=== PATIENT | female | born 1940 | race Caucasian/White ===

== ENCOUNTER 2018-10-09 05:30 | Day surgery (SDC) | payer MEDICARE ==
[2018-10-09] VITALS (8 sets, daily range): BP systolic 105–146; BP diastolic 44–66
[~2018-10-09] VITALS: Ht 160 cm; Wt 90.7 kg
[~2018-10-09 05:30] MED LIST: APIX5TAB PO; ASPI-1005 PO; CALC-1116 PO; CETI10TA57 PO; FISH1CAP27 PO; FLUO20CA30 PO; LISI10TA7 PO; MULT-1203 PO; PRAV20TA4 PO
[2018-10-09] MEDS ORDERED: SODIUM CHLORIDE 0.9% 1000ML 1,000 ML IV ONE (05:43)
[2018-10-09] MEDS ORDERED: PROPOFOL 10 MG/ML 20ML VIAL IV ONE (06:35)
[2018-10-09] MEDS ORDERED: LIDOCAINE HCL-MPF 2% 5ML VIAL ONE (06:37)
== END 2018-10-09 07:45 | disposition home or self-care (01) ==
LOC: DAH 05:30 → ENDO 05:30
PROVIDERS: ATTEND Internal Medicine
DX: D12.3 Benign neoplasm of transverse colon (principal); D12.2 Benign neoplasm of ascending colon; K57.30 Diverticulosis of large intestine without perforation or abscess without bleeding; K64.8 Other hemorrhoids; I48.91 Unspecified atrial fibrillation; I10 Essential (primary) hypertension; E78.5 Hyperlipidemia, unspecified; I25.10 Atherosclerotic heart disease of native coronary artery without angina pectoris; I25.2 Old myocardial infarction; F32.9 Major depressive disorder, single episode, unspecified; Z88.8 Allergy status to other drugs, medicaments and biological substances; Z88.2 Allergy status to sulfonamides; Z88.1 Allergy status to other antibiotic agents; Z79.82 Long term (current) use of aspirin; Z79.899 Other long term (current) drug therapy; Z98.41 Cataract extraction status, right eye; Z98.42 Cataract extraction status, left eye; Z90.710 Acquired absence of both cervix and uterus; Z98.890 Other specified postprocedural states; Z79.01 Long term (current) use of anticoagulants; Z95.5 Presence of coronary angioplasty implant and graft; Z82.5 Family history of asthma and other chronic lower respiratory diseases; Z82.49 Family history of ischemic heart disease and other diseases of the circulatory system
CPT/HCPCS: 45380; 88305; 93005; J2704; J3490; J7030